=== PATIENT | female | born 2000 | race Caucasian/White ===

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

== ENCOUNTER 2019-08-28 16:45 | Emergency (ER) | payer OTHER ==
[~2019-08-28] VITALS: Ht 157.5 cm; Wt 68.0 kg
[~2019-08-28 16:45] MED LIST: AMOX1TAB61 PO; HYDR-3165 PO; IBUP600T16 PO
--- NOTE | 2019-08-28 17:31 | RAD ---
Study: 1. FOOT RIGHT 3V 2. ANKLE RIGHT 3V Indication: Fall. Comparison: None. Findings: Anatomic alignment at the ankle. No acute fracture. The talar dome is intact. No acute osseous abnormality seen throughout the foot. Small os peroneum. Impression: No acute osseous abnormality seen at the right ankle or right foot. Electronically signed by: MICHAEL WU MD (08/28/2019 5:28 PM) [id number]
--- NOTE | 2019-08-28 17:34 | PHYS DOC ---
Past History Past Medical History: No Pertinent History Past Surgical History: No Surgical History Alcohol Use: None Drug Use: None Adult General Chief Complaint Chief Complaint: FOOT INJURY PAIN HPI HPI 19-year-old female presents with right lateral ankle pain. The patient works at a [employer] school. She was outside with the children and to avoid knocking the child over she had to jump onto a plantar. Her foot did not land Square and she rolled her right ankle medially. She had a immediate pain in her popping sound. She is able to walk, but is with significant pain. She had pain that shot up her leg and continues to have throbbing in the lateral ankle. No previous history of significant ankle problems. She denies any other injuries or complaints. Her pain is currently a 4 out of 10. Review of Systems Review of Systems Constitutional: Denies fever or chills [] Eyes: Denies change in visual acuity, redness, or eye pain [] HENT: Denies nasal congestion or sore throat [] Respiratory: Denies cough or shortness of breath [] Cardiovascular: No additional information not addressed in HPI [] GI: Denies abdominal pain, nausea, vomiting, bloody stools or diarrhea [] : Denies dysuria or hematuria [] Musculoskeletal: Right lateral ankle pain[] Integument: Denies rash or skin lesions [] Neurologic: Denies headache, focal weakness or sensory changes [] Endocrine: Denies polyuria or polydipsia [] All other systems were reviewed and found to be within normal limits, except as documented in this note. Allergies Allergies Allergies Coded Allergies Type Severity Reaction Last Updated Verified No Known Drug Allergies 08/27/18 No Physical Exam Physical Exam Constitutional: Well developed, well nourished, no acute distress, non-toxic appearance. [] HENT: Normocephalic, atraumatic, bilateral external ears normal, oropharynx moist, no oral exudates, nose normal. [] Eyes: PERRLA, EOMI, conjunctiva normal, no discharge. [] Neck: Normal range of motion, no tenderness, supple, no stridor. [] Cardiovascular:Heart rate regular rhythm, no murmur [] Lungs & Thorax: Bilateral breath sounds clear to auscultation [] Abdomen: Bowel sounds normal, soft, no tenderness, no masses, no pulsatile masses. [] Skin: Warm, dry, no erythema, no rash. [] Back: No tenderness, no CVA tenderness. [] Extremities: Tenderness over the right ATFL, mild ecchymosis, mild swelling, no obvious deformity.[] Neurologic: Alert and oriented X 3, normal motor function, normal sensory function, no focal deficits noted. [] Psychologic: Affect normal, judgement normal, mood normal. [] Current Patient Data Vital Signs Vital Signs Date Time Temp Pulse Resp B/P (MAP) Pulse Ox O2 Delivery O2 Flow Rate FiO2 08/28/19 17:10 98.4 65 16 99 EKG EKG [] Radiology/Procedures Radiology/Procedures [] Impressions: Study: 1. FOOT RIGHT 3V 2. ANKLE RIGHT 3V Indication: Fall. Comparison: None. Findings: Anatomic alignment at the ankle. No acute fracture. The talar dome is intact. No acute osseous abnormality seen throughout the foot. Small os peroneum. Impression: No acute osseous abnormality seen at the right ankle or right foot. Electronically signed by: MICHAEL WU MD (08/28/2019 5:28 PM) [id number] DICTATED AND SIGNED BY: MICHAEL WU MD DATE: 08/28/19 1728 CC: TJ ARREAGA DO; PCP,NO ~ Course & Med Decision Making Course & Med Decision Making Pertinent Labs and Imaging studies reviewed. (See chart for details) The patient's x-rays negative for fracture. I believe she has a right ankle sprain. We'll place her in an air splint and give her crutches. She is stable for discharge at this time. [] Dragon Disclaimer Dragon Disclaimer This electronic medical record was generated, in whole or in part, using a voice recognition dictation system. Departure Departure: Impression: Primary Impression: Moderate right ankle sprain Disposition: 01 HOME, SELF-CARE Condition: STABLE Referrals: PCP,NO (PCP) Patient Instructions: Ankle Sprain, Acute, with Phase I Rehab-SportsMed Problem Qualifiers Primary Impression: Moderate right ankle sprain Encounter type: initial encounter Qualified Codes: S93.401A - Sprain of unspecified ligament of right ankle, initial encounter TJ ARREAGA DO Aug 28, 2019 17:34
== END 2019-08-28 17:48 | disposition home or self-care (01) ==
LOC: ER 16:45
DX: S93.401A Sprain of unspecified ligament of right ankle, initial encounter (principal); X50.1XXA Overexertion from prolonged static or awkward postures, initial encounter; Y93.89 Activity, other specified; Y92.89 Other specified places as the place of occurrence of the external cause; Y99.8 Other external cause status
CPT/HCPCS: 73610; 73630; 99284

== ENCOUNTER 2020-02-12 16:39 | Emergency (ER) | payer OTHER ==
[~2020-02-12] VITALS: Ht 157.5 cm; Wt 84.5 kg
[2020-02-12] MEDS ORDERED: PRED20TA PO (17:29)
--- NOTE | 2020-02-12 17:29 | PHYS DOC ---
Past History Past Medical History: No Pertinent History Past Surgical History: No Surgical History Smoking: Non-smoker Alcohol Use: Occasionally Drug Use: Marijuana General Adult EDM: Chief Complaint: LOWER EXTREMITY SWELLING HPI: HPI: 19-year-old female presents with report of bilateral feet swelling and hand swelling with some pruritus to dorsum of left foot which occurred earlier today while at work. Denies known exposure to allergen. Denies new detergents, medicines, shampoos, or soaps. Patient denies fever or chills. Denies trauma. A coworker gave her some Benadryl which she took with interval improvement of symptoms. Reports does not think she is . Reports last menstrual period was 10 days ago. Denies trauma. Patient reports on her drive over here she became very short of breath with some chest tightness. Reports the symptoms have since resolved. Review of Systems: Review of Systems: Constitutional: Denies fever or chills Eyes: Denies redness or eye pain HENT: Denies nasal congestion or sore throat Respiratory: Denies cough or shortness of breath Cardiovascular: Denies chest pain or palpitations GI: Denies abdominal pain, nausea, or vomiting : Denies dysuria or hematuria Musculoskeletal: Denies back pain; reports swelling to bilateral hands and feet Integument: Denies rash; reports redness to dorsum of left foot Neurologic: Denies headache, focal weakness or sensory changes Complete systems were reviewed and found to be within normal limits, except as documented in this note. Allergies: Allergies: Allergies Coded Allergies Type Severity Reaction Last Updated Verified No Known Drug Allergies 08/27/18 No Physical Exam: PE: Constitutional: Well developed, well nourished, no acute distress, non-toxic appearance HENT: Normocephalic, atraumatic Eyes: Conjunctiva normal, no discharge Neck: Normal range of motion, no tenderness, supple Cardiovascular: Bilateral radial, posterior tibialis, and dorsalis pedis pulses +2, CR < 2 sec Lungs & Thorax: No respiratory distress, equal chest rise and fall Skin: Warm, dry, no erythema, no rash Extremities: Left foot tenderness on palpation, ROM intact, trace edema to dorsum of left foot Neurologic: Alert and oriented X 3, no focal deficits noted Psychologic: Affect normal, judgment normal Current Patient Data: Vital Signs: Vital Signs Date Time Temp Pulse Resp B/P (MAP) Pulse Ox O2 Delivery O2 Flow Rate FiO2 02/12/20 16:39 98.7 83 18 112/57 (75) 99 Room Air EKG: EKG: [] Radiology/Procedures: Radiology/Procedures: [] Course & Med Decision Making: Course & Med Decision Making Patient presents with report of sudden left feet and hand swelling which occurred earlier today while at work. Patient reports interval improvement of symptoms after her coworker gave her some Benadryl. No active rash appreciated. Trace edema of left dorsum of foot noted. Oral steroid therefore provided. Patient stable for discharge with outpatient follow-up with PCP. Discussed findings and plan with patient, who acknowledges understanding and agreement. Dragon Disclaimer: Dragon Disclaimer: This electronic medical record was generated, in whole or in part, using a voice recognition dictation system. Departure Departure: Impression: Primary Impression: Allergic reaction Qualified Codes: T78.40XA - Allergy, unspecified, initial encounter Disposition: HOME/RESIDENCE PRIOR TO ADM Condition: STABLE Referrals: YAEL DREW (PCP) Patient Instructions: Allergies, Generic Additional Instructions: It is unclear what caused your allergic reaction today. Please take over the counter Benadryl as needed for further swelling or itching. Scripts Prednisone (PREDNISONE) 20 Mg Tablet 2 TAB PO DAILY for Allergic reaction, #8 TAB Start this prescription tomorrow, Wednesday02/13/20 Prov: ARASH LYONS DO 02/12/20 Justification of Admission: Justification of Admission: Justification of Admission Dx: N/A ARASH LYONS DO Feb 12, 2020 17:29
[2020-02-12] MEDS ORDERED: DEXAMETHASONE 4 MG TABLET PO ONE (17:30)
[2020-02-12 18:53] VITALS: BP 105/64
== END 2020-02-12 18:30 | disposition home or self-care (01) ==
LOC: ER 16:39
DX: T78.40XA Allergy, unspecified, initial encounter (principal); X58.XXXA Exposure to other specified factors, initial encounter
CPT/HCPCS: 99283; J8540